=== PATIENT | female | born 1980 | race Caucasian/White ===

== ENCOUNTER 2016-11-02 12:32 | Observation (INO) | payer MEDICAID, OTHER ==
[~2016-11-02] VITALS: Ht 167.6 cm; Wt 100.0 kg
[~2016-11-02 12:32] MED LIST: LANSO15 PO; PROM25TA5 PO
[2016-11-02 12:33] VITALS: BP 139/64; PULSE 80; RESP 12; TEMP 98.7; O2SAT 97
--- NOTE | 2016-11-02 13:11 | RADRPT ---
EXAM DATE/TIME: 11/02/2016 12:41 [facility] COMPARISON: ABDOMEN FLAT & UPRIGHT, February 25, 2016, 15:59. INDICATIONS : Chest pain. Patient also c/o pain and a pulling feeling in left side of neck, chest, arm, and leg. MEDICAL HISTORY : Hiatal hernia. SURGICAL HISTORY : None. ENCOUNTER: Initial ACUITY: 4 - 6 months PAIN SCORE: 6/10 LOCATION: Bilateral chest FINDINGS: A single view of the chest demonstrates the lungs to be symmetrically aerated without evidence of mas s, infiltrate or effusion. The cardiomediastinal contours are unremarkable. Osseous structures are intact. CONCLUSION: No acute disease. Sapphire Perez MD on November 02, 2016 at 13:09 Board Certified Radiologist. This report was verified electronically.
--- NOTE | 2016-11-02 13:11 | PD ---
HPI Chief Complaint: Chest Pain Time Seen by Provider: 13:33 Travel History International Travel<30 days: No Contact w/Intl Traveler<30days: No Traveled to known affect area: No History of Present Illness HPI 36-year-old woman presents to the emergency department complaining of chest pain. She had symptoms on and off for almost a year or so. The been getting progressively worse. The been constant for the past week or so. Worse with exertion. Also worse with emotional upset. Pains in the chest radiating to the left arm she also some pain in the left leg. Pain in the left leg started after walking on the beach. She family history of heart disease, her mom had her first cardiac event when she was 33. Came in today after symptoms were worsening and her family encouraged her to come up. Is not having symptoms now. States she's been trying to get followed up with [facility] about her heart, but she does not appear insurance she is states she has not been able follow-up with anybody. History Past Medical History Medical History: Denies Significant Hx : 2 Para: 2 Social History Alcohol Use: No Tobacco Use: No Allergies-Medications (Allergen,Severity, Reaction): Coded Allergies: No Known Allergies (Unverified , 11/02/16) Reported Meds & Prescriptions Reported Meds & Active Scripts Active No Active Prescriptions or Reported Medications Review of Systems Except as stated in HPI: all other systems reviewed are Neg Physical Exam Narrative GENERAL: Well-appearing 36-year-old, no acute distress. SKIN: Warm and dry. HEAD: Atraumatic. Normocephalic. EYES: Pupils equal and round. No scleral icterus. No injection or drainage. ENT: No nasal bleeding or discharge. Mucous membranes pink and moist. NECK: Trachea midline. No JVD. CARDIOVASCULAR: Regular rate and rhythm. No murmur appreciated. Pulses are full and equal upper extremity is. Little bit diminished in the lower extremities but symmetric. RESPIRATORY: No accessory muscle use. Clear to auscultation. Breath sounds equal bilaterally. GASTROINTESTINAL: Abdomen soft, non-tender, nondistended. Hepatic and splenic margins not palpable. MUSCULOSKELETAL: No obvious deformities. No edema. NEUROLOGICAL: Awake and alert. No obvious cranial nerve deficits. Motor grossly within normal limits. Normal speech. Data Data Last Documented VS Vital Signs Date Time Temp Pulse Resp B/P Pulse Ox O2 Delivery O2 Flow Rate FiO2 11/02/16 13:54 98.3 73 18 116/66 96 Room Air Orders Electrocardiogram (11/02/16 12:42) Complete Blood Count With Diff (11/02/16 12:42) Basic Metabolic Panel (Bmp) (11/02/16 12:42) Ckmb (Isoenzyme) Profile (11/02/16 12:42) Troponin I (11/02/16 12:42) Chest, Single Ap (11/02/16 12:42) Labs Laboratory Tests Test 11/02/16 13:00 White Blood Count 12.2 TH/MM3 Red Blood Count 4.30 MIL/MM3 Hemoglobin 13.2 GM/DL Hematocrit 38.3 % Mean Corpuscular Volume 89.0 FL Mean Corpuscular Hemoglobin 30.7 PG Mean Corpuscular Hemoglobin 34.5 % Concent Red Cell Distribution Width 13.0 % Platelet Count 263 TH/MM3 Mean Platelet Volume 8.7 FL Neutrophils (%) (Auto) 58.8 % Lymphocytes (%) (Auto) 30.7 % Monocytes (%) (Auto) 5.7 % Eosinophils (%) (Auto) 4.4 % Basophils (%) (Auto) 0.4 % Neutrophils # (Auto) 7.2 TH/MM3 Lymphocytes # (Auto) 3.7 TH/MM3 Monocytes # (Auto) 0.7 TH/MM3 Eosinophils # (Auto) 0.5 TH/MM3 Basophils # (Auto) 0.0 TH/MM3 CBC Comment DIFF FINAL Differential Comment Sodium Level 141 MEQ/L Potassium Level 3.5 MEQ/L Chloride Level 106 MEQ/L Carbon Dioxide Level 27.6 MEQ/L Anion Gap 7 MEQ/L Blood Urea Nitrogen 12 MG/DL Creatinine 0.81 MG/DL Estimat Glomerular Filtration 80 ML/MIN Rate Random Glucose 97 MG/DL Calcium Level 8.9 MG/DL Total Creatine Kinase 63 U/L Troponin I LESS THAN 0.02 NG/ML [facility] Medical Decision Making Medical Screen Exam Complete: Yes Emergency Medical Condition: Yes Interpretation(s) My review of EKG: Sinus rhythm at a rate of 67, leftward axis, nonspecific inferolateral ST changes. No definite evidence of acute ischemia. LABS: CBC is unremarkable CMP is unremarkable troponin is negative Chest x-ray unremarkable. Differential Diagnosis ACS, stress, gastritis, dissection, other Narrative Course Medical decision making 36-year-old woman presents emergency department complaint of chest pain. Looks well. Some concerning features including exertional nature of symptoms, high- risk family history, is a nonspecific changes on her EKG. She has no opportunity for outpatient follow-up. Given this we will recommend admission to chest pain Center for further evaluation, provocative testing. Diagnosis Primary Impression: Chest pain Qualified Code: R07.2 - Precordial pain Admitting Information Admitting Physician Requests: Observation Scripts No Active Prescriptions or Reported Meds Melvin Mclain MD Nov 02, 2016 13:10
[2016-11-02 13:26] LABS: AUTOMATED NEUTROPHIL # 7.2 TH/MM3 (1.8-7.7); BASOPHIL % 0.4 % (0.0-2.0); EOSINOPHIL # 0.5 TH/MM3 (0-0.4); EOSINOPHIL % 4.4 % (0.0-4.0); HEMATOCRIT 38.3 % (35.0-46.0); HEMO FLAGS DIFF FINAL; LYMPH % 30.7 % (9.0-44.0); LYMPHOCYTE # 3.7 TH/MM3 (1.0-4.8); MEAN CORPUSCULAR HEMOGLOBIN 30.7 PG (27.0-34.0); MEAN CORPUSCULAR HGB CONC 34.5 % (32.0-36.0); MONO % 5.7 % (0.0-8.0); NEUT % 58.8 % (16.0-70.0); PLATELET COUNT 263 TH/MM3 (150-450); WHITE BLOOD COUNT 12.2 TH/MM3 (4.0-11.0)
[2016-11-02 13:48] LABS: ANION GAP 7 MEQ/L (5-15); BICARBONATE 27.6 MEQ/L (21.0-32.0); BLOOD UREA NITROGEN 12 MG/DL (7-18); CHLORIDE 106 MEQ/L (98-107); GLOMERULAR FILTRATION RATE 80 ML/MIN (>89); POTASSIUM 3.5 MEQ/L (3.5-5.1); SODIUM (NA) 141 MEQ/L (136-145)
[2016-11-02 13:54] VITALS: BP 116/66; PULSE 73; RESP 18; TEMP 98.3; O2SAT 96
[2016-11-02 13:58] LABS: CREATINE KINASE 63 U/L (26-192)
[2016-11-02] MEDS ORDERED: ACETAMINOPHEN/HYDROcodone 325 MG/7.5 MG TAB PO PRN (15:00)
[2016-11-02] MEDS ORDERED: ONDANSETRON HCL 4 MG/2 ML VIAL IV PRN (15:00)
[2016-11-02] MEDS ORDERED: SODIUM CHLORIDE 0.9% FLUSH 5 ML FLUSH IVF PRN (15:00)
[2016-11-02] MEDS ORDERED: ACETAMINOPHEN 500 MG CPLT PO PRN (15:00)
[2016-11-02] MEDS ORDERED: PANTOPRAZOLE SOD 40 MG DELAYED RELEASE TAB PO SCH (15:00)
--- NOTE | 2016-11-02 15:41 | MH ---
cc: YINKA CINTRON MD DATE OF ADMISSION: 11/02/2016 DATE OF : 1980 CHIEF COMPLAINT Chest pain. HISTORY OF PRESENT ILLNESS This is 36-year-old female who presented to the ED via private vehicle, complaining of intermittent discomfort on the left side of her chest for six months. She states it also radiates down her left arm. She describes it as a heaviness and a tightness, it happens at rest, happens with activities. She states that she lives on the second floor of an apartment building and she becomes short of breath at times and also has a discomfort in her chest when she goes up the stairs. She states for the last three weeks it has been constant. Nothing really seems to worsen or improve it, but again it has been constant over the last three weeks. She seems to think that it is stress related. She states that she has grown daughters and one of her children has an infant as well at home. She has been under a lot of stress with all of this. Denies history of CAD but states that there is CAD in her family. She states that her mother had a defibrillator at age 32 and had stents, eventually had bypass in her late 40s, early 50s. She denies recent illnesses. Denies fevers or chills. PAST MEDICAL HISTORY Denies hypertension, hyperlipidemia, diabetes and known CAD. FAMILY HISTORY Her mother had CAD. She states her mother had a defibrillator at age 32, cardiac stents in her 30s, and bypass in her late 40s/early 50s. She at age 56 of CAD. SOCIAL HISTORY She is a lifetime non-smoker, denies alcohol. She smokes marijuana several times a day. PAST SURGICAL HISTORY Noncontributory. ALLERGIES No known drug allergies. MEDICATIONS Denies. REVIEW OF SYSTEMS GENERAL: Denies fevers or chills. Denies recent illnesses. HEENT: Denies headache, earache, sore throat, difficulty swallowing. CARDIOVASCULAR: Describes the discomfort as mentioned above. Denies diaphoresis. Denies sensation of heart beating rapidly or irregularly. Denies syncope. RESPIRATORY: Denies shortness of breath or inspirational chest discomfort. Denies coughing, wheezing or hemoptysis. GASTROINTESTINAL: Denies nausea, vomiting, diarrhea, abdominal pain or blood in the stool. MUSCULOSKELETAL: Denies joint pain or edema. Denies calf pain or edema. NEUROVASCULAR: Denies headache or dizziness. ENDOCRINE: Denies polyuria or polydipsia. HEMATOLOGIC: Denies easy bruising. SKIN: Denies rash or itching. PHYSICAL EXAMINATION VITAL SIGNS: The vital signs in the emergency department initially included a blood pressure of 139/64, heart rate 80, respirations 12, pulse oximetry 97% on room air, and she was afebrile. The most recent vital signs include a blood pressure of 116/66, heart rate 73, respirations 18, pulse oximetry 96% on room air and she is afebrile. GENERAL: The patient is seen in the examination room in no apparent distress. She is pleasant. She speaks in clear and complete sentences. HEENT: Atraumatic, normocephalic. NECK: Supple without lymphadenopathy. Trachea is midline. No JVD or carotid bruits. CARDIOVASCULAR: Regular rate and rhythm without murmur, gallop or rub. PULMONARY: Lungs are clear to auscultation bilaterally. No wheezing, rales or rhonchi. No use of accessory muscles. There is a worsening discomfort in her left upper chest when I palpate the area. ABDOMEN: Nontender, nondistended. Bowel sounds are normal. No guarding or rebound. No obvious pulsatile mass or bruit. No CVA tenderness. Strong femoral pulses bilaterally. EXTREMITIES: The patient is moving upper and lower extremities freely. No joint tenderness or edema. No calf tenderness or edema. No Homans sign. Strong pulses in the upper and lower extremities. NEUROLOGIC: The patient is alert and oriented. Cranial nerves II through XII are grossly intact. No focal deficits. Speech is clear. SKIN: No rashes. Turgor is normal. LABORATORY DATA CBC has a white blood cell count minimally elevated at 12.2, otherwise unremarkable. Basic metabolic panel is unremarkable. First set of cardiac enzymes normal. IMAGING DATA A single-view chest x-ray read by the radiologist as no acute disease. EKG DATA Initial EKG has incomplete right bundle branch block. There are nonspecific inferior ST-T changes. ASSESSMENT AND PLAN 1. Chest pain: Her discomfort at this time seems to be atypical. She has a family history of heart disease. The patient will be evaluated by Dr. Yinka Cintron of cardiology in the chest pain center. At that time will determine further plan. She will spend the night in the chest pain center for further rule out. 2. The patient is stable at this time. She is agreeable to this plan. Dictated by: Logan Martin PA-C MD MUNA Gotti/LEROY /2:53 PM /3:39 PM
[2016-11-02 16:10] VITALS: BP 103/64; PULSE 66; RESP 18; O2SAT 99
[2016-11-02 16:32] LABS: CREATINE KINASE 55 U/L (26-192)
[2016-11-02] MEDS ORDERED: KETOROLAC TROMETHAMINE 30 MG/ML (IVP) VIAL IVP ONE (16:45)
--- NOTE | 2016-11-02 16:48 | HHI.DCPOC ---
Discharge Care Plan Diagnosis: (1) Chest pain, atypical (2) Cervical radiculopathy (3) Lumbar radiculopathy Goals to Promote Your Health * To prevent worsening of your condition and complications * To maintain your health at the optimal level Directions to Meet Your Goals Take your medications as prescribed Follow your dietary instruction Follow activity as directed Keep your appointments as scheduled Take your immunizations and boosters as scheduled If your symptoms worsen call your PCP, if no PCP go to Urgent Care Center or Emergency Room Smoking is Dangerous to Your Health. Avoid second hand smoke Call the 24-hour hour crisis hotline for domestic abuse at Logan Martin Nov 02, 2016 16:48
--- NOTE | 2016-11-02 17:43 | RADRPT ---
EXAM DATE/TIME: 11/02/2016 17:26 [facility] COMPARISON: No previous studies available for comparison. INDICATIONS : Bilateral arm and lower back pain; radiculopathy. RADIATION DOSE: 32.26 CTDIvol (mGy) MEDICAL HISTORY : None SURGICAL HISTORY : None. ENCOUNTER: Initial ACUITY: 1 day PAIN SCALE: 9/10 LOCATION: neck TECHNIQUE: Volumetric scanning of the cervical spine was performed. Multiplanar reconstructions in the sagittal, coronal and oblique axial planes were performed. Using automated exposure control and adjustment o f the mA and/or kV according to patient size, radiation dose was kept as low as reasonably achievable to obtain optimal diagnostic quality images. FINDINGS: VERTEBRAE: Normal vertebral body height. ALIGNMENT: No evidence of subluxation. C2-C3: The bony spinal canal is normal in size. No evidence of disc bulge or herniation. The neural forami na are bilaterally patent. C3-C4: The bony spinal canal is normal in size. No evidence of disc bulge or herniation. The neural forami na are bilaterally patent. C4-C5: The bony spinal canal is normal in size. No evidence of disc bulge or herniation. Very minimal neura l foraminal narrowing is noted bilaterally. C5-C6: The bony spinal canal is normal in size. No evidence of disc bulge or herniation. The neural forami na are bilaterally patent. C6-C7: The bony spinal canal is normal in size. No evidence of disc bulge or herniation. The neural forami na are bilaterally patent. C7-T1: The bony spinal canal is normal in size. No evidence of disc bulge or herniation. The neural forami na are bilaterally patent. CONCLUSION: 1. No acute fracture or prevertebral soft tissue swelling. 2. Very minimal bilateral neuroforaminal narrowing at C4-5. Reddy Mena MD on November 02, 2016 at 17:38 Board Certified Radiologist. This report was verified electronically.
--- NOTE | 2016-11-02 17:45 | RADRPT ---
EXAM DATE/TIME: 11/02/2016 17:29 [facility] COMPARISON: No previous studies available for comparison. INDICATIONS : Bilateral arm and lower back pain; radiculopathy. RADIATION DOSE: 35.86 CTDIvol (mGy) MEDICAL HISTORY : None SURGICAL HISTORY : None. ENCOUNTER: Initial ACUITY: 1 day PAIN SCALE: 9/10 LOCATION: Lower back TECHNIQUE: Volumetric scanning of the lumbar spine was performed. Multiplanar reconstructions in the sagittal, coronal and oblique axial planes were performed. Using automated exposure control and adjustment of the mA and/or kV according to patient size, radiation dose was kept as low as reasonably achievable t o obtain optimal diagnostic quality images. FINDINGS: VERTEBRAE: Normal vertebral body height. ALIGNMENT: No evidence of subluxation. T12-L1: The thecal sac has a normal diameter. No evidence of disc bulge or protrusion. The neural foramina are patent bilaterally. L1-L2: The thecal sac has a normal diameter. No evidence of disc bulge or protrusion. The neural foramina are patent bilaterally. L2-L3: The thecal sac has a normal diameter. No evidence of disc bulge or protrusion. The neural foramina are patent bilaterally. L3-L4: Broad left paracentral to left lateral disc protrusion which appears to approach the exiting left L3 nerve root. Correlation as to location of radicular symptoms recommended. L4-L5: The thecal sac has a normal diameter. No evidence of disc bulge or protrusion. The neural foramina are patent bilaterally. L5-S1: The thecal sac has a normal diameter. No evidence of disc bulge or protrusion. The neural foramina are patent bilaterally. CONCLUSION: No acute bony findings. Broad left paracentral to left lateral disc protrusion at L3-4 could produce left L3 distribution rad icular symptoms. Correlation recommended. Bob Lane MD on November 02, 2016 at 17:40 Board Certified Radiologist. This report was verified electronically.
[2016-11-02 17:53] VITALS: BP 133/87; TEMP 98.2
[2016-11-02] MEDS ORDERED: SODIUM CHLORIDE 0.9% FLUSH 5 ML FLUSH IVF SCH (21:00)
[2016-11-03] MEDS ORDERED: ASPIRIN 325 MG TAB PO SCH (09:00)
--- NOTE | 2016-11-03 14:48 | EKG ---
Date Performed: 11/02/2016 Time Performed: 16:14:08 PTAGE: 36 years EKG: Sinus rhythm MARKED LEFT AXIS DEVIATION INCOMPLETE RIGHT BUNDLE BRANCH BLOCK ABNORMAL ECG PREVIOUS TRACING : 11/02/2016 12.48 Since previous tracing, no significant change noted DOCTOR: Guillaume Cintron Interpretating Date/Time 11/03/2016 14:47:36
--- NOTE | 2016-11-03 14:48 | EKG ---
Date Performed: 11/02/2016 Time Performed: 12:48:20 PTAGE: 36 years EKG: Sinus rhythm WITH SINUS ARRHYTHMIA MARKED LEFT AXIS DEVIATION INCOMPLETE RIGHT BUNDLE BRANCH BLOCK ABNORMAL ECG NO PREVIOUS TRACING DOCTOR: Guillaume Cintron Interpretating Date/Time 11/03/2016 14:47:42
== END 2016-11-02 17:53 | disposition home or self-care (01) ==
LOC: NEPC 12:32 → NEDH 14:18
PROVIDERS: ADMIT Internal Medicine Cardiovascular Disease; ATTEND Internal Medicine Cardiovascular Disease
DX: R07.2 Precordial pain (principal); M54.12 Radiculopathy, cervical region; M54.16 Radiculopathy, lumbar region; R94.31 Abnormal electrocardiogram [ECG] [EKG]; F12.90 Cannabis use, unspecified, uncomplicated; Z82.49 Family history of ischemic heart disease and other diseases of the circulatory system
CPT/HCPCS: 71010; 72125; 72131; 80048; 82550; 84484; 84703; 85025; 93005; 99285; G0378; J1885

== ENCOUNTER 2017-04-28 12:43 | Emergency (ER) | payer MEDICAID ==
[~2017-04-28] VITALS: Ht 165.1 cm; Wt 93.0 kg
[2017-04-28 12:46] VITALS: BP 144/70; PULSE 78; RESP 20; TEMP 98.6; O2SAT 97
--- NOTE | 2017-04-28 13:26 | PD ---
HPI Chief Complaint: Skin Problem Time Seen by Provider: 13:25 Travel History International Travel<30 days: No Contact w/Intl Traveler<30days: No Traveled to known affect area: No History of Present Illness HPI 37-year-old female presents to the emergency department for evaluation of multiple somatic complaints that are seemingly located on the right side of her body. She opens with stating "I think I have shingles." The patient states that she's had right-sided flank pain intermittently for the past 2 weeks. States that this is the pain that has ultimately brought her to the emergency department today. States that 6 days ago she had an ulcer to the inside of her right mouth and right-sided jaw pain radiating to her right ear. States that this has improved however she still has the right-sided oral pain. States that she has generalized weakness and fatigue as well. She states that she's had urinary frequency and sensation of difficulty starting a stream of urine when she has to go. States she's had a cough for 2 weeks. No aggravating or alleviating factors. Denies fever, chills, nausea, vomiting, diarrhea, shortness of breath, difficulty breathing. Denies , last menstrual period 3 weeks ago. Denies any prior abdominal surgeries. No other complaints. PFSH Past Medical History Hiatal Hernia: Yes : 2 Para: 2 Social History Alcohol Use: No Tobacco Use: No Substance Use: No Allergies-Medications (Allergen,Severity, Reaction): Coded Allergies: No Known Allergies (Unverified , 04/28/17) Reported Meds & Prescriptions Reported Meds & Active Scripts Active No Active Prescriptions or Reported Medications Review of Systems Except as stated in HPI: all other systems reviewed are Neg Physical Exam Narrative GENERAL: Well-nourished and well-developed pleasant female patient in no acute distress who is nontoxic appearing. SKIN: Warm and dry. Few HEAD: Normocephalic and atraumatic. EYES: No injection, drainage, or hyphema noted. PERRLA. EOMI. ENT: There is a white ulcer to the right inner oral mucosa. No gingival swelling or erythema. No nasal drainage noted. Oropharynx is clear. NECK: Supple and the trachea is midline. CARDIOVASCULAR: Regular rate and rhythm. RESPIRATORY: Breath sounds are equal bilaterally with no accessory muscle use, wheezing, rhonchi, or crackles. GASTROINTESTINAL: Right upper quadrant and right flank tenderness to palpation. No rebound tenderness or guarding. Negative McBurney's point. Abdomen is soft and nondistended. MUSCULOSKELETAL: No obvious deformities, swelling, cyanosis, or ecchymosis is present throughout the upper and lower extremities. Patient has full range of motion without any signs of neurovascular compromise. NEUROLOGICAL: Awake, alert, and oriented. Normal speech and gait. Cranial nerves are grossly intact. Data Data Last Documented VS Vital Signs Date Time Temp Pulse Resp B/P Pulse Ox O2 Delivery O2 Flow Rate FiO2 04/28/17 12:46 98.6 78 20 144/70 97 Room Air Orders Complete Blood Count With Diff (04/28/17 13:23) Comprehensive Metabolic Panel (04/28/17:23) Lipase (04/28/17:23) Urinalysis - C+S If Indicated (04/28/17 13:23) Iv Access Insert/Monitor (04/28/17 13:23) Ecg Monitoring (04/28/17 13:23) Oximetry (04/28/17:) Sodium Chloride 0.9% Flush (Ns Flush) (04/28/17 13:30) Ed Urine Pregnancytest Poc (04/28/17 13:23) [facility] Medical Decision Making Medical Screen Exam Complete: Yes Emergency Medical Condition: Yes Differential Diagnosis Pyelonephritis versus cystitis versus kidney stone versus viral illness versus electrolyte abnormality Narrative Course 37-year-old female presents to the emergency department for evaluation of right flank pain, weakness, fatigue, dysuria. Patient is afebrile, vital signs are stable. She does have right flank tenderness to palpation. The patient was initially seen here in the fast track low acuity pod. Based on her complaints and physical examination findings I believe that she needs to have labs performed. I discussed this with the patient. 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 I did discuss with the patient that she may have an infection or an electrolyte abnormality that could be potentially life-threatening. Patient verbalizes understanding and still states that she has to leave. Therefore she is going to leave AGAINST MEDICAL ADVICE. AMA: The risks of leaving against medical advice without further evaluation treatment were discussed with the patient. These risks include cardiac dysfunction, cardiac dysrhythmia, possible heart attack, possible stroke or . The patient indicated understanding of these risks and appeared to have the capacity to make this decision. Diagnosis Primary Impression: Left against medical advice Additional Instructions: You are experiencing flank pain, weakness, fatigue and dysuria. We wanted to perform blood work and urinalysis however you did not wish to stay for this testing. Therefore you are leaving AGAINST MEDICAL ADVICE. You may return to the emergency department at any time. Scripts No Active Prescriptions or Reported Meds Disposition: 07 AGAINST MEDICAL ADVICE Guerline Tomlin Apr 28, 2017 13:26
[2017-04-28] MEDS ORDERED: SODIUM CHLORIDE 0.9% FLUSH 10 ML FLUSH IV FLUSH PRN (13:30)
== END 2017-04-28 13:42 | disposition left against medical advice (07) ==
LOC: NEPK 12:43
DX: R10.9 Unspecified abdominal pain (principal); R53.1 Weakness; R53.83 Other fatigue; R30.0 Dysuria; R68.84 Jaw pain; R05 Cough; K13.79 Other lesions of oral mucosa
CPT/HCPCS: 99281

== ENCOUNTER → 2018-01-25 | Outpatient (CLI) | payer OTHER | LOC: HPND 09:11 | PROVIDERS: ATTEND Family Medicine | DX: O36.80X0 Pregnancy with inconclusive fetal viability, not applicable or unspecified (principal); O09.521 Supervision of elderly multigravida, first trimester | CPT/HCPCS: 76801; 76817 ==

== ENCOUNTER → 2018-02-21 | Outpatient (CLI) | payer OTHER | LOC: HPND 13:15 | PROVIDERS: ATTEND Family Medicine | DX: O09.521 Supervision of elderly multigravida, first trimester (principal) | CPT/HCPCS: 76815 ==

== ENCOUNTER → 2018-04-16 | Outpatient (CLI) | payer OTHER ==
--- NOTE | 2018-04-16 13:15 | RADRPT ---
EXAM DATE: 04/16/2018 10:52 AM EDT AGE/SEX: 38 years / Female INDICATIONS: Right upper quadrant pain. CLINICAL DATA: This is the patient's initial encounter. Patient reports that signs and/or symptoms h ave been present for 1 week and indicates a pain score of 4/10. MEDICAL/SURGICAL HISTORY: . Hiatal hernia. . Bilateral knee arthroscopy. Right wrist rep air with pins. COMPARISON: No prior exams available for comparison. MEASUREMENTS: Liver:__ 19.0 cm. Common Bile Duct:__ 5mm. FINDINGS: Liver: Increased echotexture without focal lesion or ductal dilation. Portal Vein: Hepatopedal flow seen in portal vein. Common Duct: No intraluminal mass or stone visualized. Gallbladder: Demonstrates no wall thickening or pericholecystic fluid. No stones visualized. Pancreas: The visualized portions are within normal limits Right Kidney: Miniscule echogenic focus in the anterior midpole cortex which may be a focal calcific ation or other small echogenic mass measuring approximately 5 mm Other: None. CONCLUSION: Miniscule echogenic focus in the right kidney. Otherwise unremarkable sonographic appearance of the r ight upper quadrant Electronically signed by: Bob Lane MD 04/16/2018 1:14 PM EDT
== END ==
LOC: HRAD 08:49
PROVIDERS: ATTEND Internal Medicine Gastroenterology
DX: K21.9 Gastro-esophageal reflux disease without esophagitis (principal); K80.20 Calculus of gallbladder without cholecystitis without obstruction; K76.0 Fatty (change of) liver, not elsewhere classified
CPT/HCPCS: 76705